=== PATIENT | female | born 1980 | race Caucasian/White ===

== ENCOUNTER 2017-03-30 23:14 | Inpatient (IN) ==
[2017-03-30] MEDS ORDERED: ONDANSETRON 4 MG/2 ML VIAL IV STA (23:39)
[2017-03-30] MEDS ORDERED: KETOROLAC 30 MG/1 ML VIAL IV STA (23:39)
[2017-03-30] MEDS ORDERED: SODIUM CHLORIDE 0.9% 500 ML IV STA (23:39)
[2017-03-30] MEDS ORDERED: ONDANSETRON 4 MG/2 ML VIAL ONE (23:48)
[2017-03-30] MEDS ORDERED: KETOROLAC 30 MG/1 ML VIAL ONE (23:49)
--- NOTE | 2017-03-30 23:57 | Emergency Department Note ---
Jed Longoria Brittany, am scribing for, and in the presence of, Ryne Stevens MD 23:46. Rodney Longoria Charles R, MD, personally performed the services described in this documentation, ascribed by Melissa Adkins in my presence, and it is both accurate and complete 357 . Arrival - Arrival Chief Complaint: Abdominal / Flank Pain Stated Complaint: lower abdominal pain ED Nursing Triage Note: C/O RLQ abd/Right flank pain. 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 Denies hematuria or dysuria. Denies fever. Mode of Arrival: Ambulatory Limitations: No Limitations Source: Patient Time Seen by Provider: 03/30/17 23:31 - History of Present Illness HPI Narrative: This is a 36 y/o female,who presents to the ED with c/o abdominal pain which started at 1730 She localizes the abdomen pain to the RLQ and states the pain moves into the right flank area and goes down into the right groin area. She denies a fever, dysuria or hematuria but notes a decreased appetite. She has no previous medical Hx of kidney stones. She reports she still has her appendix. Pt has no other complaints/pain in the ED at this time. Pt has a PMHx of Mitral valve prolapse and hypothyroidism. Pt denies a surgical Hx. Pt denies a family medical Hx. Pt is a current some day smoker, occasionally drinks alcohol but denies the use of street drugs. Onset (ago): hour(s) (Started at 1730) Consistency: constant Severity: severe Date of Last Menstrual Period: 3 weeks ago Allergies/Adverse Reactions: Allergies Allergy/AdvReac Type Severity Reaction Status Date / Time No Known Allergies Allergy Verified 03/30/17 23:17 Home Medications: Home Medications Medication Instructions Recorded Confirmed Type Levothyroxine Tab [Synthroid Tab] 75 mcg PO DAILY@0700 03/30/17 03/30/17 History Review of System - Review of System 12 point system: reviewed and no additional remarkable complaints except as stated - Review of System Review of Systems: Decreased appetite Constitutional: Absent: fever Gastrointestinal: Present: abdominal pain Genitourinary female: Absent: dysuria, hematuria Medical,Surgical,& Family Hx - Medical History Cardio: History of: Valvular Heart Disease (Mitral valve prolapse) Endocrine: History of: Thyroid Disorder (Hypothyroidism) - Social History Smoking Status: Current some day smoker Frequency of Alcohol Use: Occasionally Type of Drug Use: None Exam Vital Signs: Vital Signs Temperature 98.5 F 03/30/17 23:18 Pulse Rate 90 03/30/17 23:30 Respiratory Rate 20 03/30/17 23:30 Blood Pressure 118/78 03/30/17 23:30 O2 Sat by Pulse Oximetry 97 03/30/17 23:30 - General General appearance: alert, in no apparent distress - Head Head exam: Present: atraumatic, normocephalic, normal inspection - Eye Eye exam: Present: normal appearance, PERRL, EOMI. Absent: nystagmus, miosis, mydriasis - ENT ENT exam: Present: normal exam, normal oropharynx, mucous membranes moist, TM's normal bilaterally, normal external ear exam - Neck Neck exam: Present: normal inspection, full ROM, trachea midline. Absent: tenderness, meningismus, lymphadenopathy, thyromegaly - Chest Chest inspection: Present: normal inspection, symmetric chest wall rise. Absent : tenderness, rash, abscess - Cardiovascular Cardiovascular exam: Present: tachycardia - Abdominal Exam Abdominal exam: Present: soft, tenderness (RLQ tenderness ), guarding (Somewhat guarding ), diminished bowel sounds, tenderness at McBurney's Point. Absent: distention - Rectal Exam Rectal exam: Present: deferred - Extremities Exam Extremities exam: Present: normal inspection, full ROM, normal capillary refill. Absent: tenderness, pedal edema, joint swelling, calf tenderness - Back Exam Back exam: Present: CVA tenderness (R). Absent: tenderness, muscle spasm, rashes - Neurological Exam Neurological exam: Present: alert, oriented X3, CN II-XII intact. Absent: motor sensory deficit - Psychiatric Psychiatric exam: Present: normal affect, normal mood. Absent: depressed, agitated, anxious, flat affect, manic - Skin Skin exam: Present: warm, dry, intact, normal color. Absent: rash, cyanosis, diaphoresis, erythema, pallor, mottled Course - Consultations Consultation #1: Dr. Mcdonnell will admit patient Time: 01:16 Results - Labs CBC & BMP: 03/30/17 23:45 03/30/17 23:45 Lab Results: I have reviewed the patients labs - Diagnostic Findings Procedure: CT Abdomen and Pelvis: image reviewed by me, report reviewed by me ( Acute appendicitis) Disposition Clinical Impression: Acute appendicitis, Abdominal pain, Leukocytosis Case discussed with: patient Disposition: Still a Patient Condition: Stable Time of Disposition: 01:16
[2017-03-31 00:23] LABS: Basophils % 0.2 % (0.0-0.8); Eosinophils # 0.2 10*3/uL (0.0-0.87); Hematocrit 39.7 VOL% (35.7-47.0); Hemoglobin 13.9 GM/DL (12.0-16.0); Immature Granulocytes % 0.3 %; Immature Granulocytes Absolute 0.05 #; Lymphocytes # 2.5 10*3/uL (1.4-4.0); Lymphocytes % 15.2 % (21.3-54.2); Mean Corpuscular Hemoglobin 30 PG (27-34); Mean Corpuscular Volume 85.9 FL (87-102); Mean Platelet Volume 9.7 FL (9.6-12.0); Monocytes # 0.7 10*3/uL (0.11-0.8); Monocytes % 4.4 % (1.7-12.7); Neutrophils # 13.1 10*3/uL (1.4-7.4); Neutrophils % 78.9 % (38.7-73.9); Platelet Count 232 T/CUMM (130-400); Red Blood Count 4.62 MC/CUMM (3.8-5.5); Red Cell Distribution Width 11.8 % (9.3-17.3); White Blood Count 16.6 T/CUMM (4-12)
[2017-03-31 00:28] LABS: Apearance,Urine CLEAR (Clear); Bilirubin,Urine Negative (Negative); Blood, Urine Negative (Negative); Glucose,Urine (UA) Negative (Negative); Ketones,Urine Negative (Negative); Nitrite,Urine Negative (Negative); Protein,Urine Negative; RBC,Urine <1 /HPF (0-4); Squamous Epithelial Cell,Urine Occasional /HPF (0-10); Urine Color Straw (Yellow); Urine Specific Gravity 1.008 (1.001-1.035); Urine Urobilinogen < 2.0 EU/DL (0.2-1.0); WBC,Urine <1 /HPF (0-6)
[2017-03-31 00:41] LABS: Albumin 4.4 G/DL (3.4-5.0); Bilirubin,Total 0.7 MG/DL (0.2-1.0); Calcium 9.7 MG/DL (8.5-10.1); Magnesium 2.1 MG/DL (1.8-2.4); Osmolality,Calculated 283.3 MOS/KG (273-304); Potassium 3.8 MMOL/L (3.5-5.1); Total Protein 7.8 G/DL (6.4-8.3)
[2017-03-31] MEDS ORDERED: PIPERACILLIN/TAZOBACTAM 3,375 MG VIAL IV ONE (01:20)
[2017-03-31] MEDS ORDERED: PIPERACILLIN/TAZOBACTAM 3,375 MG in SODIUM CHLORIDE 0.9% 100 ML IV STA (01:23)
[2017-03-31] MEDS ORDERED: HYDROmorphone 2 MG/1 ML VIAL IV PRN (02:07)
[2017-03-31] MEDS ORDERED: ONDANSETRON 4 MG/2 ML VIAL IV PRN (02:07)
[2017-03-31] MEDS ORDERED: SODIUM CHLORIDE 0.9% 1,000 ML IV SCH (02:07)
[2017-03-31] MEDS ORDERED: ACETAMINOPHEN 325 MG TABLET PO PRN (02:07)
[2017-03-31 05:49] LABS: Basophils % 0.2 % (0.0-0.8); Eosinophils # 0.1 10*3/uL (0.0-0.87); Eosinophils % 0.4 % (0.00-10.9); Hematocrit 34.1 VOL% (35.7-47.0); Hemoglobin 11.8 GM/DL (12.0-16.0); Immature Granulocytes % 0.4 %; Immature Granulocytes Absolute 0.05 #; Lymphocytes # 2.2 10*3/uL (1.4-4.0); Lymphocytes % 17.4 % (21.3-54.2); Mean Corpuscular HGB Conc 34.6 GM/DL (32-36); Mean Corpuscular Hemoglobin 30 PG (27-34); Mean Corpuscular Volume 85.5 FL (87-102); Mean Platelet Volume 10.2 FL (9.6-12.0); Monocytes # 0.5 10*3/uL (0.11-0.8); Neutrophils # 9.9 10*3/uL (1.4-7.4); Neutrophils % 77.6 % (38.7-73.9); Platelet Count 198 T/CUMM (130-400); Red Blood Count 3.99 MC/CUMM (3.8-5.5); Red Cell Distribution Width 11.8 % (9.3-17.3); White Blood Count 12.8 T/CUMM (4-12)
--- NOTE | 2017-03-31 06:12 | CT Report ---
CT abdomen pelvis wo con Indication right lower quadrant Flank pain, abdominal pain Comparison: None. Technique: CT of the abdomen and pelvis was performed without administration of intravenous contrast. Coronal and sagittal reformatted images were additionally created and submitted for review. The total DLP is 196 mGy*cm. Dose reduction: This CT exam was performed using one or more of the following dose reduction techniques: Automated exposure control, automated adjustment of the mA and/or KV according to patient size, or use of iterative reconstruction technique. Findings: Very minimal posterior basilar dependent atelectatic changes are noted bilaterally. Lung bases are otherwise clear. There is no pleural or pericardial effusion. ABDOMEN: Liver/Gallbladder: Unenhanced liver appears grossly within normal limits. No gallstones or biliary ductal dilatation. Spleen: No acute findings. Pancreas: No acute findings. Adrenals: Within normal limits in appearance. Kidneys: There is a single punctate 1 mm calcific density at the lower pole the right kidney, which may represent a nonobstructing stone. Otherwise, no renal calculi are identified. There is no hydronephrosis. Bowel/mesentery: Preliminary report questions inflammatory changes within the appendix. The appendix is not well identified given lack of oral and intravenous contrast but measures over 9 mm, which is technically dilated. There is very minimal inflammatory changes about the tubular structure which may represent the appendix or nondilated distal small bowel. Small bowel is nondilated. No free fluid/air within the abdomen. Colon is diffusely filled with stool suggesting a degree of fecal stasis/constipation. There is no evidence of colonic dilatation. There is no mesenteric adenopathy. Retroperitoneum: No evidence of aortic aneurysm or significant retroperitoneal adenopathy. PELVIS: No free fluid. Uterus and ovaries appear grossly unremarkable for CT technique. Bladder is mildly distended but otherwise within normal limits. There is no adenopathy. BONES: No acute or suspicious osseous abnormalities are identified. IMPRESSION: 1. Limited visualization given lack of oral and intravenous contrast. Possible early acute appendicitis - see above comments. Correlate clinically consider CT abdomen pelvis with intravenous and oral contrast if clinically indicated. 2. Findings suggesting a mild-moderate degree of fecal stasis/constipation. 3. Punctate calcific density at the lower pole the right kidney is favored to represent a nonobstructing renal stone, which could be a source of right-sided pain. Preliminary report by virtual radiologic. 03/31/2017 6:03 AM PROCEDURE INTERPRETED AT [facility] DEPARTMENT OF RADIOLOGY Final Report Signed by: Zohaib Watson
[2017-03-31 06:26] LABS: Albumin 3.6 G/DL (3.4-5.0); Bilirubin,Total 1.1 MG/DL (0.2-1.0); Calcium 8.8 MG/DL (8.5-10.1); Magnesium 2.2 MG/DL (1.8-2.4); Osmolality,Calculated 285.8 MOS/KG (273-304); Total Protein 6.4 G/DL (6.4-8.3)
[2017-03-31] MEDS ORDERED: LEVOTHYROXINE 75 MCG TABLET PO SCH (07:00)
--- NOTE | 2017-03-31 07:09 | XRay Report ---
Exam: XR abdomen 2V Date: 03/30/2017 11:40 PM Indication: Abdominal pain Comparison: None Technical: Supine and erect abdomen Findings: The lung bases are unremarkable. The liver and spleen shadows are not well seen on the renal shadows. Moderate fecal debris present scattered in the colon. Buttons superimpose the pelvis. Phleboliths are present. Impression: 1. Mild constipation 2. Phleboliths in the true pelvis. PROCEDURE INTERPRETED AT [facility] DEPARTMENT OF RADIOLOGY Final Report Signed by: Dr. Nam Wheeler
--- NOTE | 2017-03-31 07:40 | General Surg History&Physical ---
Assessment and Plan (1) Acute appendicitis Status: Acute Assessment and plan: This patient has evidence of acute appendicitis without perforation. There is a little bit of hedging on the radiology report as far as whether this represents appendicitis or not but I feel that with the clinical history, exam, and CT images that I have reviewed personally that the patient has appendicitis. I recommended a laparoscopic appendectomy at the patient but of also discussed the possibility of antibiotic treatment alone. I discussed the success rate of antibiotics alone and because of the failure rate with antibiotics and the prolonged course of antibiotics required I have recommended laparoscopic appendectomy to the patient. She would like to proceed with surgery. This will be scheduled for today. Current Visit: Yes History of Present Illness Chief complaint: Abdominal pain History of present illness: Ms. Heredia is a 36 year old female with a one-day history of worsening right lower quadrant pain with nausea no vomiting. She has never had this pain before. CT scan was done without p.o. or IV contrast which showed evidence of appendicitis. Patient is focally tender in the right lower quadrant. No evidence of urinary tract infection. test negative per Home Medications Medication Instructions Recorded Confirmed Type Levothyroxine Tab [Synthroid Tab] 75 mcg PO DAILY@0700 03/30/17 03/30/17 History Allergies Allergy/AdvReac Type Severity Reaction Status Date / Time No Known Allergies Allergy Verified 03/31/17 02:59 Medical,Surgical,& Family Hx - Medical History Cardio: History of: Valvular Heart Disease (Mitral valve prolapse) Endocrine: History of: Thyroid Disorder (Hypothyroidism) - Family History Family History: Reports;: Family Cancer (mother, basil cell skin cancer), Family Heart Disease (mother, father), Family Hypertension (father) - Social History Smoking Status: Current some day smoker Frequency of Alcohol Use: Occasionally Type of Drug Use: None Exam - Constitutional Vitals: Period Temp Pulse Resp BP Sys/Montez Pulse Ox Last 24 Hr 97.8 F-98.7 F 65-114 16-20 95-144/62-97 97-100 General appearance: normal weight, no acute distress - Head Head exam: Present: normal inspection, normocephalic - Eye Eye exam: Present: EOMI Pupils: Present: EDDA - ENT ENT exam: Present: normal exam Mouth exam: Present: normal external inspection, normal voice - Neck Neck exam: Present: normal inspection, trachea midline - Respiratory Respiratory exam: Present: clear to auscultation bilaterally. Absent: accessory muscle use, chest wall tenderness - Cardiovascular Cardiovascular exam: Present: RRR. Absent: systolic murmur, tachycardia - GI/Abdominal GI/Abdominal exam: Present: normal bowel sounds, tenderness (Focally tender in the right lower quadrant.), soft. Absent: guarding, rebound - Extremities Exam Extremities exam: Present: normal inspection, normal capillary refill - Back Exam Back exam: Present: normal inspection - Neurological Exam Neurological exam: Present: alert, oriented X3 Speech: Present: normal - Skin Skin exam: Present: normal color, warm - Constitutional Constitutional: Present: as per HPI - EENT Nose, mouth and throat: Present: as per HPI - Cardiovascular Cardiovascular: Present: as per HPI - Respiratory Respiratory: Present: as per HPI - Gastrointestinal Gastrointestinal: Present: as per HPI - Genitourinary Genitourinary: Present: as per HPI - Musculoskeletal Musculoskeletal: Present: as per HPI - Neurological Neurological: Present: as per HPI - Endocrine Endocrine: Present: as per HPI Hematologic/Lymphatic: Present: as per HPI Results - Labs CBC & BMP: 03/31/17 05:00 03/31/17 05:00 - Diagnostic Findings Procedure: CT Abdomen and Pelvis: image reviewed by me, report reviewed by me ( No evidence of inflammation in the right lower quadrant alongside a tubular structure which likely represents the appendix. No evidence of perforation or abscess.)
[2017-03-31] MEDS ORDERED: PANTOPRAZOLE 40 MG VIAL IV SCH (09:00)
[2017-03-31] MEDS ORDERED: PIPERACILLIN/TAZOBACTAM 3,375 MG in SODIUM CHLORIDE 0.9% 100 ML IV SCH (10:00)
[2017-03-31] MEDS ORDERED: LIDOCAINE 1%/EPI INJ 20 ML VIAL ONE (10:11)
[2017-03-31] MEDS ORDERED: BUPIVACAINE 0.25% /EPI 10 ML VIAL ONE ×2 (10:11)
[2017-03-31] MEDS ORDERED: ONDANSETRON 4 MG/2 ML VIAL ONE (10:42)
[2017-03-31] MEDS ORDERED: LIDOCAINE 2% 5 ML VIAL ONE (10:42)
[2017-03-31] MEDS ORDERED: GLYCOPYRROLATE 0.4 MG/2 ML VIAL ONE (10:42)
[2017-03-31] MEDS ORDERED: NEOSTIGMINE 10 MG/10 ML VIAL ONE (10:42)
[2017-03-31] MEDS ORDERED: ROCURONIUM 100 MG/10 ML VIAL IV ONE (10:42)
[2017-03-31] MEDS ORDERED: KETOROLAC 30 MG/1 ML VIAL ONE (10:42)
[2017-03-31] MEDS ORDERED: TISSUE ADHESIVE 1 EACH APPLICATOR TOP ONE (11:16)
--- NOTE | 2017-03-31 11:19 | Operative Note ---
Date of procedure: 03/31/17 Pre-op diagnosis: Acute appendicitis Post-op diagnosis: same Procedure: Preoperative diagnosis Acute appendicitis Postoperative diagnosis Same Procedures performed Laparoscopic appendectomy Findings Acute appendicitis nonperforated Blood loss 5 mL Anesthesia GETA Complications None apparent Specimen Appendix Indications Acute appendicitis. I discussed the option of medical treatment with antibiotics alone with the patient in detail. I discussed the failure rate of 25% with antibiotics alone and the requirement to stay in the hospital for several days of antibiotics and observation. The patient decided to proceed with laparoscopic appendectomy. I discussed the risks, benefits, and alternatives of the operation with the patient, and the expected outcomes were reviewed. In particular, I discussed the risk of bleeding, infection, wound complications, bowel obstruction, and ureteral injury. The patient elects to proceed with the operation. Description of procedure The patient was taken to the operating room and transferred to the operating table in the supine position. Pressure points were padded and SCDs were placed to bilateral lower extremities. General endotracheal anesthesia was administered. The abdominal hair was clipped with electric clippers and the abdomen was prepped with chlorhexidine and draped sterilely. Preoperative antibiotics were administered, and a timeout was performed. The abdomen was entered in the supraumbilical location in the right paramedian position with a Veress needle. Local anesthetic was administered and a 12 mm skin incision was made with an 11 blade scalpel. Penetrating towel clips were used to grasp the abdominal wall skin and a Veress needle was used into the peritoneal cavity. Intra-peritoneal location was confirmed with a double click technique. Aspiration was negative. Saline drop test confirmed intraperitoneal location. The abdomen was insufflated to 15 mmHg with initial insufflation pressure of 2 mmHg. The Veress needle was removed and a 12 mm trocar was placed bluntly. Diagnostic laparoscopy was then performed. There was no evidence of Veress needle or trocar injury. The patient was placed in Trendelenburg and left side rolled down position. Under direct visualization, and after local anesthetic was administered, 2 additional 5 mm trochars were placed in the suprapubic position in the left lower quadrant position. The bowel was then moved out of the right lower quadrant and the appendix was visualized. The appendix was acutely inflamed consistent with the patient's suspected preop diagnosis. The appendix was grasped and retracted towards the patient's feet in a window in the appendiceal mesentery was created with [place] dissector. ROBYN stapler was then used to transect the base of the appendix. The appendiceal mesentery was also divided using vascular staple loads. The right lower quadrant was focally suction irrigated. This was done until the effluent was clear. The appendix was placed in Endo Catch bag and removed through the 12 mm trocar site. The CO2 was then released from the abdomen and the trochars were removed. Skin incisions were closed with 4-0 Monocryl and sterile skin glue was applied. The patient was awakened from anesthesia and transferred to recovery. Postoperative plan Diet as tolerated Follow-up in 2 weeks Anesthesia: ZOYA local Surgeon / Physician: Lv Mcdonnell Estimated blood loss: minimal Specimens: other (appendix) Condition: stable Disposition: PACU Results - Labs CBC & BMP: 03/31/17 05:00 03/31/17 05:00 Discharge Plan - Discharge Data Disposition: Disch To Home/Self Care Condition at Discharge: Stable Discharge Diet: advance to your usual diet Activity: no lifting Hygiene: may shower Weight Bearing at Discharge: weight bear as tolerated Driving: other (Do not drive or operate heavy machinery for at least 24 hours and after you are off of narcotic pain medications.) Contact your physician if you experience:: fever over 101, Difficulty voiding, Redness or swelling, Nausea/Vomiting, Shortness of breath, Bleeding, pain uncontrolled by pain medications Wound / Dressing Care Instructions: It is okay to shower. Do not scrub the incision aggressively or submerge it under water. - Discharge Medications New Hydrocodone/Acetaminophen [[place] 7.5-325 Tablet] 1 each PO Q4H PRN #30 tablet PRN Reason: Pain Ondansetron Odt Tab [Zofran Odt] 4 mg PO Q4H PRN #10 tablet PRN Reason: Nausea Continue Levothyroxine Tab [Synthroid Tab] 75 mcg PO DAILY@0700 - Follow Up or Referral Follow Up: Lv Mcdonnell MD [Physician] - 2 Weeks - Forms/Instructions
[2017-03-31] MEDS ORDERED: MIDAZOLAM 2 MG/2 ML VIAL ONE (11:38)
[2017-03-31] MEDS ORDERED: SEVOFLURANE 1 UNIT/15 MINUTE INH ONE (11:38)
[2017-03-31] MEDS ORDERED: fentaNYL 100 MCG/2 ML VIAL ONE (11:38)
--- NOTE | 2017-03-31 14:01 | Anesthesia Post-Op ---
Anesthesia Post OP - Post Ansesthetic Evaluation Patient seen in post op: Yes Resp: within normal limits CV: within normal limits Mental: within normal limits Temp: within normal limits [id number]: within normal limits Nausea and Vomiting: within normal limits Pain: within normal limits
[2017-03-31 16:13] VITALS: BP 93/53
--- NOTE | 2017-04-02 13:16 | Pathology Report from [facility] ---
[facility] [place] ACCESSION # : [id number] PATIENT NAME : Noemi Heredia ORDERING DR : Lv Mcdonnell MD CLINICAL HX: Acute appendicitis POST-OP DX: Same SPECIMEN INFO: Appendix GROSS DESCRIPTION: Received in formalin labeled NOEMI HEREDIA is an appendix measuring 6.3 x 0.8 cm. The serosa is smooth and red gray. The lumen is hemorrhagic and patent with no fecaliths or perforations seen. Doctor Podiatric Medicine sections are submitted in one cassette. DIAGNOSIS FOR NOEMI HEREDIA: APPENDIX, APPENDECTOMY: Acute suppurative appendicitis. COLLECTED DATE: 03/31/2017 [facility] REPORT DATE: 04/01/2017 ELECTRONICALLY SIGNED BY: Joseph Dyer M.D. 04/01/2017 - 9:34:27 [facility]ENTERAlexander
== END 2017-03-31 17:45 | disposition home or self-care (01) | DRG 343 ==
LOC: N.ED 23:14 → N.EDINP 03-31 01:18 → N.3E 03-31 01:39
PROVIDERS: ADMIT Surgery; ATTEND Surgery